=== PATIENT | female | born 1980 | race Caucasian/White ===

== ENCOUNTER → 2021-01-06 | Outpatient (CLI) | payer OTHER ==
[~2021-01-06] MED LIST: APRI 28 DAY TA1 EACH PO; COLACE 100MG C100 MG PO; MECLIZINE HCL25 MG PO; ZOFRAN4 MG PO
== END ==
LOC: LAB 07:56
DX: N91.2 Amenorrhea, unspecified (principal)
CPT/HCPCS: 36415; 84702

== ENCOUNTER → 2021-10-25 | Outpatient (CLI) | payer OTHER ==
[2021-10-25 12:05] LABS: HEMOGLOBIN 14.5 gm/dl (12.3-15.3); RED BLOOD COUNT 4.37 M/UL (4.00-5.10); WHITE BLOOD COUNT 11.4 K/UL (4.5-11.0)
[2021-10-25 12:24] LABS: BUN/CREATININE RATIO 28 (0-10)
[2021-10-26 09:18] LABS: VITAMIN D, 25-HYDROXY 50.1 ng/mL (30.0-100.0)
== END ==
LOC: LAB 11:01
PROVIDERS: Physician Assistant
DX: Z13.1 Encounter for screening for diabetes mellitus (principal); Z13.220 Encounter for screening for lipoid disorders; E55.9 Vitamin D deficiency, unspecified; R53.83 Other fatigue; R43.1 Parosmia
CPT/HCPCS: 36415; 80053; 80061; 82607; 84439; 84443; 85025; 86038; 86140